=== PATIENT | male | born 1960 | race Caucasian/White ===

== ENCOUNTER 2016-12-18 17:09 | Emergency (ER) | payer OTHER ==
[~2016-12-18] VITALS: Ht 170.2 cm; Wt 90.6 kg
[2016-12-18 17:38] VITALS: BP 142/90
[2016-12-18 17:55] LABS: BLOOD UREA NITROGEN 15 mg/dL (7-18)
[2016-12-18 17:56] LABS: HEMATOCRIT 45.5 % (39.2-51.8); HEMOGLOBIN 15.7 g/dL (13.7-18.0); WHITE BLOOD COUNT 10.4 x10^3/uL (3.4-10)
== END 2016-12-18 19:07 | disposition home or self-care (01) ==
LOC: ED 19:00
DX: N45.1 Epididymitis (principal)
CPT/HCPCS: 36415; 76870; 80048; 81003; 82040; 85025; 99285